=== PATIENT | male | born 1980 | race Hispanic/Latino ===

== ENCOUNTER 2016-12-29 14:27 | Emergency (ER) | payer OTHER ==
[2016-12-29] MEDS ORDERED: Sodium Chloride 0.9% 1,000 ML IV STA (14:49)
--- NOTE | 2016-12-29 14:50 | ED PDOC ---
HPI: CCC, URI, Sore Throat Time Seen by Provider: 12/29/16 14:36 Chief Complaint (Nursing): Back Pain Chief Complaint (Provider): Back Pain History Per: Patient Additional Complaint(s): 36 yo male. no PMH, presents to ED with complaints of fever, back pain and cough for the past 24hours. Pt took 4 Motrin tabs [employer]. pt notes he was up all night with chills. Past Medical History Reviewed: Nursing Documentation, Vital Signs Vital Signs: Last Vital Signs Temp 99.5 F 12/29/16 16:17 Pulse 136 H 12/29/16 14:30 Resp 18 12/29/16 14:30 BP 144/102 H 12/29/16 14:30 Pulse Ox 95 12/29/16 16:23 - Medical History PMH: No Chronic Diseases - Surgical History Surgical History: No Surg Hx - Family History Family History: States: No Known Family Hx - Living Arrangements Living Arrangements: With Family - Social History Current smoker - smoking cessation education provided: No Alcohol: Social Drugs: Denies - Allergies Allergies/Adverse Reactions: Allergies Allergy/AdvReac Type Severity Reaction Status Date / Time No Known Allergies Allergy Verified 12/29/16 14:30 Curb-65 Severity Score - CURB-65 Severity Score Confusion: No Bun >19mg/dl (>7mmol/L): No Respiratory Rate greater than/equal to 30: No Systolic BP <90 or Diastolic BP less than/equal 60mmHg: No Age >64: No Curb-65 Score: 0 Percentage 30-day mortality: 0.6% Review of Systems ROS Statement: Except As Marked, All Systems Reviewed And Found Negative Constitutional: Positive for: Fever, Chills Respiratory: Positive for: Cough Musculoskeletal: Positive for: Back Pain Physical Exam - Reviewed Nursing Documentation Reviewed: Yes Vital Signs Reviewed: Yes - Physical Exam Appears: Positive for: Non-toxic, No Acute Distress, Uncomfortable Head Exam: Positive for: ATRAUMATIC, NORMAL INSPECTION, NORMOCEPHALIC Skin: Positive for: Normal Color, Warm, DRY Eye Exam: Positive for: EOMI, Normal appearance, PERRL ENT: Positive for: Normal ENT Inspection Neck: Positive for: Normal, Painless ROM Cardiovascular/Chest: Positive for: Regular Rate, Rhythm Respiratory: Positive for: CNT, Normal Breath Sounds Gastrointestinal/Abdominal: Positive for: Normal Exam, Bowel Sounds, Soft Back: Positive for: Normal Inspection Extremity: Positive for: Normal ROM Neurologic/Psych: Positive for: Alert, Oriented - Laboratory Results Result Diagrams: 12/29/16 15:00 12/29/16 15:00 - ECG O2 Sat by Pulse Oximetry: 95 Medical Decision Making Medical Decision Making: Temp 103 HR 136 Pt meets SIRS criteria IVF started and WBC 19.7 CXR: NAD, as read by NELLA TORRES Rocpehin and Zithro started due to clinical presentation. Lactate normal at: 1.4 Repeat temp on re-eval: 99.5 Pt stable for dc home on oral therapy at this time. advised to follow up with R[facility], return to ED if at anytime condition worsens. Disposition - Disposition Forms: [employer] (German)
[2016-12-29 15:35] LABS: BASO # 0.1 K/uL (0.0-0.2); BASO % 0.5 % (0.0-2.0); HEMOGLOBIN 13.3 g/dL (12.0-18.0); LYMPH # 1.1 K/uL (1.0-4.3); LYMPH % 5.6 % (20.0-40.0); MEAN CELL VOLUME 91.6 fl (80.0-94.0); MEAN CORPUSCULAR HEMOGLOBIN 30.5 pg (27.0-31.0); MEAN CORPUSCULAR HGB CONC 33.3 g/dL (33.0-37.0); MEAN PLATELET VOLUME 8.3 fl (7.2-11.7); MONO % 5.3 % (0.0-10.0); NEUT # 17.5 K/uL (1.8-7.0); NEUT % 88.6 % (50.0-75.0); PLATELET COUNT 229 K/uL (130-400); RBC 4.38 Mil/uL (4.40-5.90); RED CELL DISTRIBUTION WIDTH 13.9 % (11.5-14.5); WHITE BLOOD COUNT 19.7 K/uL (4.8-10.8)
[2016-12-29 15:36] LABS: ALB/GLOB RATIO 1.3 (1.0-2.1); ALBUMIN 4.4 g/dL (3.5-5.0); ALT/SGPT 44 U/L (21-72); AST/SGOT 32 U/L (17-59); BLOOD UREA NITROGEN 15 mg/dl (9-20); CALCIUM 9.3 mg/dL (8.4-10.2); GFR AFRICAN-AMERICAN > 60; GFR NON-AFRICAN AMERICAN > 60
--- NOTE | 2016-12-29 15:49 | RAD ---
HISTORY: fever and cough COMPARISON: No prior. TECHNIQUE: Chest PA and lateral FINDINGS: LUNGS: No active pulmonary disease. PLEURA: No significant pleural effusion identified. No pneumothorax apparent. CARDIOVASCULAR: Normal. OSSEOUS STRUCTURES: No significant abnormalities. VISUALIZED UPPER ABDOMEN: Normal. OTHER FINDINGS: None. IMPRESSION: No active disease.
[2016-12-29] MEDS ORDERED: Azithromycin 500 MG in Sodium Chloride 0.9% 250 ML IVPB STA (15:54)
[2016-12-29 16:21] LABS: VENOUS BLOOD GAS BASE EXCESS 5.4 mmol/L (0.0-2.0); VENOUS BLOOD GAS PCO2 42 mmHg (40-60); VENOUS BLOOD GAS PO2 38 mm/Hg (30-55); VENOUS BLOOD PH 7.46 (7.32-7.43)
[2016-12-29] MEDS ORDERED: cefTRIAXone (Rocephin) 1 gm Inj ONE (16:35)
[2016-12-29] MEDS ORDERED: Azithromycin 500 MG IV IVPB ONE (16:35)
[2016-12-29 17:09] LABS: LYMPHOCYTE 9 % (20-50); MONOCYTE 5 % (0-10); NEUTROPHIL 86 % (42-75); PLATELET ESTIMATE NORMAL (NORMAL); TOTAL CELLS COUNTED 100
[2016-12-29 17:14] LABS: ANISOCYTOSIS SLIGHT; HYPOCHROMIC SLIGHT
[2016-12-29 18:56] VITALS: BP 128/78; PULSE 79; RESP 19; TEMP 98.9; O2SAT 98
== END 2016-12-29 19:18 | disposition home or self-care (01) ==
LOC: H.ER 14:27
DX: J18.9 Pneumonia, unspecified organism (principal)